=== PATIENT | male | born 1970 | race Caucasian/White ===

== ENCOUNTER 2025-04-09 05:25 | Observation (INO) ==
--- NOTE | 2025-03-09 10:12 | PAT Medication Instructions ---
Medication Instructions Date of Service March 09, 2025 Home Medications Medication Instructions Recorded albuterol sulfate 90 mcg/actuation See Rx Instructions .Route 11/25/24 aerosol inhaler (Ventolin HFA) .COMPLEX PRN shortness of breath or wheezing #18 grams ezetimibe 10 mg tablet (Zetia) 10 mg PO DAILY #30 tabs 12/07/24 fluticasone furoate 100 1 inh inhalation DAILY #28 ea 12/18/24 mcg-vilanterol 25 mcg/dose inhalation powder (Breo Ellipta) albuterol sulfate 90 mcg/actuation aerosol inhaler (Ventolin HFA) See Rx Instructions .Route .COMPLEX PRN ezetimibe 10 mg tablet (Zetia) 10 mg PO DAILY fluticasone furoate 100 mcg-vilanterol 25 mcg/dose inhalation powder (Breo Ellipta) 1 inh inhalation DAILY fluticasone propionate 50 mcg/actuation nasal spray,suspension 1 spray intranasal DAILY loratadine 10 mg tablet (Claritin) 10 mg PO DAILY Continue as directed albuterol sulfate 90 mcg/actuation aerosol inhaler (Ventolin HFA) See Rx Instructions .Route .COMPLEX PRN(use if needed; please bring with you to hospital day of surgery if possible) ezetimibe 10 mg tablet (Zetia) 10 mg PO DAILY fluticasone furoate 100 mcg-vilanterol 25 mcg/dose inhalation powder (Breo Ellipta) 1 inh inhalation DAILY fluticasone propionate 50 mcg/actuation nasal spray,suspension 1 spray intranasal DAILY DO NOT take the morning of surgery loratadine 10 mg tablet (Claritin) 10 mg PO DAILY Other Notes OTHERWISE NOTHING TO EAT OR DRINK AFTER MIDNIGHT. If you have any questions please call us at [phone] or [phone] or [phone] or [phone]
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
[2025-04-09] MEDS: dexAMETHasone**PF** 10 MG/ML VIAL IV SCH (05:54)
[2025-04-09] MEDS: LR 500ML BOLUS, THEN 15ML/HR IV SCH (05:54)
[2025-04-09] MEDS: GABAPENTIN 900 MG DOSE PO SCH (05:59)
[2025-04-09] MEDS: ACETAMINOPHEN 500 MG TAB PO SCH (06:00)
[2025-04-09] MEDS: FAMOTIDINE 20 MG TAB PO SCH (06:00)
[2025-04-09] MEDS: LR 60ML/HR IV SCH (06:01)
[2025-04-09] MEDS ORDERED: MIDAZOLAM HCL 1 MG/ML 2ML VIAL ONE ×2 (06:13→07:09)
[2025-04-09] MEDS ORDERED: BUPIVACAINE 0.5 % 5 MG/1 ML PF 10ML VIAL ONE (06:16)
[2025-04-09] MEDS ORDERED: ONDANSETRON INJ 2 MG/ML 2 ML VIAL IV PRN ×2 (06:28→09:45)
[2025-04-09] MEDS ORDERED: ATROPINE SULFATE 0.1 MG/ML 10ML SYR IV PRN (06:28)
--- NOTE | 2025-04-09 06:33 | History & Physical Bridge Note ---
Date of Service April 09, 2025 History & Physical Bridge Note I have examined the patient, reviewed the History & Physical and in the interval since the performance of the History & Physical I have noted the following changes of clinical significance: no changes noted
[2025-04-09] MEDS ORDERED: PROPOFOL IV EMULSION 10 MG/ML 20 ML VIAL IV ONE ×3 (06:36→08:18)
[2025-04-09] MEDS ORDERED: ONDANSETRON INJ 2 MG/ML 2 ML VIAL ONE (06:36)
[2025-04-09] MEDS: TRANEXAMIC ACID 1,000 MG **IV Pre-op IV SCH (06:42)
[2025-04-09] MEDS ORDERED: Nursing to Pharmacy Communication SCH (06:45)
[2025-04-09] MEDS: ORTHO JOINT ANESTHETIC ONE (07:21)
--- NOTE | 2025-04-09 08:00 | Operative Report ---
PG Post Operative Report Pre & Post Diagnosis Operation Date: 04/09/25 07:00 Pre-Op Diagnosis: Left Hip Osteoarthritis Post-Op Diagnosis: Left Hip Osteoarthritis I identified the patient and participated in the time-out.: Yes Procedure Operation Date: 04/09/25 07:00 Actual Procedures p Left Anterior Total Hip Arthroplasty(Left) - Karl Webster DO Surgeon Karl Webster DO Showplace Manager Eladio Yan PA-C Estimated Blood Loss 250 Findings Consistent with Post-Op Diagnosis Specimens Left femoral head Description of Procedure Implants used I used a ZimmerBiomet total hip arthroplasty system with a size 5 high offset Z1 stem, a 56 mm G7 cup, an E1 polyethylene liner, a 40 mm ceramic head with a +3.5 neck. Ilia arrived at the hospital for the above procedure. He was seen in the preoperative holding area and the operative extremity was identified and signed. He was given a spinal anesthetic, a preoperative antibiotic, and TXA. He was then taken back to the operating room and laid on the table in the supine position. He was given basic sedation. The operative leg was secured to a Puristst leg positioner. The hip was then prepped and draped in sterile fashion. A timeout was done and the patient and the operative extremity was properly identified. An anterior approach was used. Dissection was taken down through the fascia and the tensor muscle belly was retracted laterally and the rectus was retracted medially. The circumflex vessels were identified and ligated. The capsule was then incised and tagged for later repair. The femoral neck was then cut and the femoral head was removed. The acetabulum was exposed. Time was spent doing a complete circumferential labral release. Sequential reaming of the acetabulum up to a size 55 reamer was done. Final reamings were done under fluoroscopy to ensure appropriate version. A Biomet 56 mm G7 cup was then impacted into place. The E1 polyethylene liner was then snapped into place. Surrounding soft tissues were then injected with 100 cc of an orthopedic pain control cocktail. The proximal femur was then exposed. Sequential broaching up to a size 5 broach was done. Off that broach a size 40 head with a +3.5 neck was trialed. The hip was reduced and fluoroscopic images showed anatomic alignment of the implants in acceptable length. The broach was removed. The final size 5 high offset Z1 stem was then impacted into place. A ceramic 40 mm head with a +3.5 neck was then impacted onto the stem and the hip was reduced. Final fluoroscopic images showed anatomic alignment of the hip. The capsule was then closed with #1 Vicryl suture. A dilute betadyne lavage was then done for 3 minutes. The joint was then irrigated with normal saline solution. The fascia was closed with #1 PDS suture. Skin was closed with 2-0 Vicryl, [place] zip line, and a Silverlon dressing. He was then transferred to a hospital bed and taken to the post anesthesia care unit in stable condition. He tolerated the procedure well. Eladio Yan PA-C, was present for the entire procedure. He was critical for patient positioning, prepping, draping, retraction exposure, wound closure and application of sterile dressing. I attest to the content of the Intraoperative Record and any orders documented therein. Any exceptions are noted below.
[2025-04-09] MEDS: ROPIV 0.5% 246mg, Ketorolac 30mg, EPINEPHrine 0.5mg in NSS INFIL SCH (08:20)
--- NOTE | 2025-04-09 08:51 | XRay Report ---
XR hip 1V LT w pelvis CLINICAL HISTORY: IN PACU - Post Surgical COMPARISON: 11/27/2024 FINDINGS: Left hip prosthesis shows no hardware complication. There is expected soft tissue gas. Sta ble mild degenerative changes right hip. IMPRESSION: Unremarkable postoperative exam. ACT 112: Negative or not required by law. Electronically signed by: Kyle Mahoney M.D. 04/09/2025 8:50 AM
--- NOTE | 2025-04-09 09:29 | Fluoroscopy Report ---
FL hip LT 1V CLINICAL HISTORY: LEFT ANTERIOR HIP COMPARISON STUDY: 11/27/2024 FLUOROSCOPY TIME: 18 seconds FLUOROSCOPY IMAGES: 1 EXPOSURE DOSE: 2.6 mGy FINDINGS: Fluoroscopy was provided for left hip prosthesis. IMPRESSION: Intraoperative fluoroscopy. ACT 112: Negative or not required by law. Electronically signed by: Kyle Mahoney M.D. 04/09/2025 9:28 AM
[2025-04-09] MEDS ORDERED: METOCLOPRAMIDE HCL INJ 5 MG/ML 2 ML VIAL IV PRN (09:45)
[2025-04-09] MEDS ORDERED: NALOXONE HCL 0.4 MG/1 ML VIAL/CARP IV PRN (09:45)
[2025-04-09] MEDS ORDERED: MAGNESIUM HYDROXIDE SUSP 30 ML UDC PO PRN (09:45)
[2025-04-09] MEDS: SODIUM CHLORIDE 0.9% 1,000 ML IV SCH (09:52)
[2025-04-09] MEDS: KETOROLAC TROMETHAMINE 15 MG/ML VIAL IV SCH (10:28)
[2025-04-09] MEDS: DOCUSATE SODIUM 100 MG CAP PO SCH (10:28)
[2025-04-09] MEDS: EZETIMIBE 10 MG TAB PO SCH (10:28)
[2025-04-09] MEDS: MULTIVITAMIN TAB PO SCH (10:29)
--- NOTE | 2025-04-09 13:43 | Anesthesiology Progress Note ---
Date of Service April 09, 2025 Anesthesia Post Procedure Vital Signs Vital Signs: Temp Pulse Pulse Pulse Resp BP Pulse Ox 04/09/25 11:42 97.7 F 77 16 156/88 H 96 04/09/25 10:40 73 16 160/80 H 96 04/09/25 10:18 97.7 F 72 16 152/91 H 92 04/09/25 09:40 97.9 F 93 H 16 142/81 H 92 04/09/25 09:30 82 20 125/82 95 04/09/25 09:15 78 14 146/87 H 94 04/09/25 09:05 82 16 132/83 96 04/09/25 08:55 97.9 F 72 14 136/75 93 04/09/25 08:45 71 16 131/78 96 04/09/25 08:35 70 14 118/67 98 04/09/25 08:28 97.5 F L 81 12 124/71 97 04/09/25 05:49 98.4 F 80 18 170/99 H 96 O2 Del Method O2 Flow Rate 04/09/25 11:42 Room Air 04/09/25 10:40 Room Air 04/09/25 10:18 Room Air 04/09/25 09:40 Room Air 04/09/25 09:30 Room Air 04/09/25 09:15 Room Air 04/09/25 09:05 Room Air 04/09/25 08:55 Room Air 04/09/25 08:45 Oxymask 4 04/09/25 08:35 Oxymask 6 04/09/25 08:28 Oxymask 6 04/09/25 05:49 Room Air Pain Intensity Left Hip: Pain Intensity: 2 Transfer of Care Handoff Completed per policy Notes Mental Status: alert / awake / arousable and participated in evaluation Patient Amnestic to Procedure: Yes Nausea / Vomiting: adequately controlled Pain: adequately controlled Airway Patency, RR, SpO2: stable & adequate BP & HR: stable & adequate Hydration State: stable & adequate Neuraxial Anesthesia: was administered and sensory block is resolving Anesthetic Complications: no major complications apparent and Pt Satisfied with anesthetic care
[2025-04-09] MEDS: SENNA 8.6 MG TAB PO SCH (21:40)
[2025-04-09] MEDS: ASPIRIN 81 MG ECTAB PO SCH (21:40)
[2025-04-09] MEDS: HYDROmorphone INJ 0.5 MG/0.5 ML SYR IV PRN (21:43)
--- NOTE | 2025-04-10 07:09 | Orthopedic Progress Note ---
Date of Service April 10, 2025 Assessment & Plan (1) Status post left hip replacement: Overall he is doing very well. He is not having much pain in the left hip. He will be seen by physical therapy today for ambulation and range of motion exercises. He is on aspirin for DVT prophylaxis. He can be discharged to home later today. He will follow-up with orthopedics in 2 weeks. Abril Morillo was seen and examined at bedside this morning. Overall he is doing fairly well. He is not having much pain in the left hip. Has been up and ambulated to the bathroom. Has no complaints.. Review of Systems All systems reviewed & are unremarkable except as noted in HPI & below. Physical Exam On physical exam of the left hip, the dressing is clean and dry. His leg is out full extension. He has active dorsiflexion plantarflexion of his left ankle.. Results & Data Results & Data Laboratory Results . Diagnostic Findings Postoperative x-rays of the left hip show the prosthesis to be in anatomic alignment without any evidence of fracture, dislocation, or loosening.. PG Care Time/CCT Total # of Minutes Spent Total Time Spent with Patient: Total time spent is greater than 50% in coordination of care (as documented) at patient's floor/unit and/or counseling patient: Coding Level of Care Code 20206 Post Operative Follow-Up Diagnoses Status post left hip replacement Z96.642
[2025-04-10 07:49] VITALS: BP 167/89; RESP 16; TEMP 98.1; O2SAT 98
[2025-04-10 08:50] VITALS: PULSE 86
[2025-04-10] MEDS ORDERED: diphenhydrAMINE Capsule 25 MG CAP PO PRN (10:31)
[2025-04-10] MEDS: diphenhydrAMINE Capsule 25 MG CAP PO PRN (10:46)
== END 2025-04-10 11:09 | disposition home health service (06) ==
LOC: 3E 05:25 → ASU 05:25 → UNDODISOB 04-10 10:32